=== PATIENT | female | born 1960 | race Native Hawaiian/Other Pacific Islander ===

== ENCOUNTER 2020-08-31 12:01 | Outpatient (CLI) | payer OTHER | END 2020-08-31 19:16 | disposition home or self-care (01) | LOC: LAB 12:01 | PROVIDERS: ATTEND Nurse Practitioner Family | DX: R05 Cough (principal); J06.9 Acute upper respiratory infection, unspecified; Z20.828 Contact with and (suspected) exposure to other viral communicable diseases | CPT/HCPCS: 87635; G2023; U0003 ==